=== PATIENT | male | born 1950 | race Two or more races ===

== ENCOUNTER 2019-01-30 15:07 | Inpatient (IN) | payer SELFPAY ==
--- NOTE | 2019-01-30 15:16 | PDOC ---
History of Present Illness - General Stated Complaint: ALTERED MENTAL STATUS Time Seen by Provider: 01/30/19 15:15
--- NOTE | 2019-01-30 15:45 | PDOC ---
History of Present Illness - General Chief Complaint: Altered Mental Status Stated Complaint: ALTERED MENTAL STATUS Time Seen by Provider: 01/30/19 15:15 - History of Present Illness Initial Comments: 01/30/19 15:44 Patient is a 68 yo male w/ unknown pmh who presents for evaluation after found walking along train tracks earlier today. Brought to ER by [facility]; patient has never been to this ER before. Patient reports his girlfriend kicked him out. Unable to provide other information. The patient denies chest pain, shortness of breath, headache and dizziness. Denies fever, chills, nausea, vomit, diarrhea and constipation. Denies dysuria, frequency, urgency and hematuria. Past History - Past Medical History Allergies/Adverse Reactions: Allergies Allergy/AdvReac Type Severity Reaction Status Date / Time No Known Allergies Allergy Verified 01/30/19 15:53 Review of Systems - Review of Systems Comments:: 01/30/19 15:45 Unable to obtain further. *Physical Exam - Physical Exam Comments: 01/30/19 15:45 GENERAL: +Oriented x1. Awake, alert, in no acute distress HEAD: No signs of trauma, normocephalic, atraumatic EYES: PERRLA, EOMI, sclera anicteric, conjunctiva clear ENT: Auricles normal inspection, hearing grossly normal, nares patent, oropharynx clear without exudates. Moist mucosa NECK: Normal ROM, supple, no lymphadenopathy, JVD, or masses LUNGS: No distress, speaks full sentences, clear to auscultation bilaterally HEART: Regular rate and rhythm, normal S1 and S2, no murmurs, rubs or gallops, peripheral pulses normal and equal bilaterally. ABDOMEN: Soft, nontender, normoactive bowel sounds. No guarding, no rebound. No masses EXTREMITIES: Normal inspection, Normal range of motion, no edema. No clubbing or cyanosis. NEUROLOGICAL: Cranial nerves II through XII grossly intact. Normal speech, normal gait, no focal sensorimotor deficits SKIN: Warm, Dry, normal turgor, no rashes or lesions noted. Heart Score/ECG Review - History History: Slightly suspicious - Electrocardiogram EKG: Non specific repolarization disturbance - Age Age: >/= 65 - Risk Factors Risk Factors Heart Score: Yes Hx Hypercholesterolemia, Yes Hx Hypertension, Yes Hx Diabetes Based on the list above the patient has:: >/=3 risk factors or Hx atherosclerotic disease - Troponin Troponin: >/=3x normal limit - Score Heart Score - Total: 7 ED Treatment Course - LABORATORY CBC & Chemistry Diagram: 01/30/19 16:09 01/30/19 16:09 Medical Decision Making - Medical Decision Making 01/30/19 15:54 Mr. Mcpherson is a 68 yo male w/ unknown pmh who presents for evaluation after picked up by [employer]. Patient unable to provide history; AOx1 only. Patient unaware of any medical problems or medicines proscribed. Called [employer] [facility] [employer] and no records found in either system nationally. 01/30/19 18:28 [employer] contacted who reported patient is a missing person. Family info received. contacted who is en route to hospital. Labs returned with elevated troponin as below to 0.54. EKG significant for ST elevation in V1. Cardiology paged. Patient continues to deny chest pain. 01/30/19 18:43 Discussed patient with neonatal intensive care nurse who recommended ASA, statin, beta-arnulfo. Given patient's BP at 125/80 beta-arnulfo held at this time. Attempted to call patient's - spoke to son and informed of arrival. [phone]. Son informed patient has HTN, HLD, DM, and "device in heart." Confirmed patient is only oriented to self at baseline. Head CT significant for possible small left chronic cerebellar infect. Negative for acute process. Patient admitted to hospitalist for further evaluation. Laboratory Results - last 24 hr 01/30/19 01/30/19 01/30/19 16:09 16:09 16:09 WBC 10.9 H RBC 4.21 Hgb 13.3 Hct 38.4 MCV 91.0 MCH 31.5 MCHC 34.6 RDW 13.6 Plt Count 220 MPV 9.3 Absolute Neuts (auto) 8.4 H Neutrophils % 77.6 Lymphocytes % 14.4 Monocytes % 7.0 Eosinophils % 0.4 Basophils % 0.6 Nucleated RBC % 0 Sodium 140 Potassium 4.2 Chloride 105 Carbon Dioxide 25 Anion Gap 10 BUN 15 Creatinine 1.4 H Creat Clearance w eGFR 50.25 Random Glucose 158 H Calcium 9.0 Total Bilirubin 1.0 AST 32 ALT 30 Alkaline Phosphatase 102 Ammonia Creatine Kinase 383 H Troponin I 0.54 H Total Protein 7.5 Albumin 3.6 Urine Color Yellow Urine Appearance Clear Urine pH 6.0 Ur Specific [place] 1.014 Urine Protein Negative Urine Glucose (UA) Negative Urine Ketones 1+ H Urine Blood Negative Urine Nitrite Negative Urine Bilirubin Negative Urine Urobilinogen 1.0 Ur Leukocyte Esterase Negative 01/30/19 16:09 WBC RBC Hgb Hct MCV MCH MCHC RDW Plt Count MPV Absolute Neuts (auto) Neutrophils % Lymphocytes % Monocytes % Eosinophils % Basophils % Nucleated RBC % Sodium Potassium Chloride Carbon Dioxide Anion Gap BUN Creatinine Creat Clearance w eGFR Random Glucose Calcium Total Bilirubin AST ALT Alkaline Phosphatase Ammonia 23.40 Creatine Kinase Troponin I Total Protein Albumin Urine Color Urine Appearance Urine pH Ur Specific [place] Urine Protein Urine Glucose (UA) Urine Ketones Urine Blood Urine Nitrite Urine Bilirubin Urine Urobilinogen Ur Leukocyte Esterase *DC/Admit/Observation/Transfer Diagnosis at time of Disposition: Elevated troponin, ST segment changes on electrocardiogram - Discharge Dispostion Decision to Admit order: Yes - Referrals - Patient Instructions - Post Discharge Activity
--- NOTE | 2019-01-30 16:09 | PDOC ---
Documentation entered by Kelley Little SCRIBE, acting as scribe for Kayley Cuevas MD. Attending Attestation - Resident Resident Name: Clark Borden - ED Attending Attestation I have performed the following: I have examined & evaluated the patient, The case was reviewed & discussed with the resident, I agree w/resident's findings & plan - HPI HPI: 01/30/19 16:20 The patient is a 68 year old male with no known PMH who was brought into the ED by [facility] after being found near the train tracks. He has no complaints at this time. Patient is unable to provide any further history. The patient denies chest pain, shortness of breath, headache and dizziness. Denies fever, chills, nausea, vomit, diarrhea and constipation. Denies dysuria, frequency, urgency and hematuria. Allergies: NKA Past surgical history: None reported. - Physicial Exam PE: GENERAL: Awake, alert, oriented to person, in no acute distress. Confused HEAD: No signs of trauma EYES: PERRLA, EOMI, sclera anicteric, conjunctiva clear ENT: Auricles normal inspection, hearing grossly normal, nares patent, oropharynx clear without exudates. Dry mucosa NECK: Normal ROM, supple, no lymphadenopathy, JVD, or masses LUNGS: Breath sounds equal, clear to auscultation bilaterally. No wheezes, and no crackles HEART: Regular rate and rhythm, normal S1 and S2, no murmurs, rubs or gallops ABDOMEN: Soft, nontender, normoactive bowel sounds. No guarding, no rebound. No masses EXTREMITIES: Normal range of motion, no edema. No clubbing or cyanosis. No cords, erythema, or tenderness NEUROLOGICAL: Cranial nerves II through XII grossly intact. Normal speech. Motor and sensation intact. Answers questions inappropriately SKIN: Warm, Dry, normal turgor, no rashes or lesions noted. - Medical Decision Making Pt with AMS, unclear past medical history. Will obtain AMS workup including labs (will do ammonia level), CTH, CXR, EKG. Kayley Cuevas MD: This documentation has been prepared by the Sidney davidson Daisy, SCRIBE, under my direction and personally reviewed by me in its entirety. I confirm that the documentation accurately reflects all work, treatment, procedures, and medical decision making performed by me.
[2019-01-30 17:46] LABS: BASO % 0.6 % (0-2.0); EOS % 0.4 % (0-4.5); HEMATOCRIT 38.4 % (35.4-49); HEMOGLOBIN 13.3 GM/dL (11.7-16.9); LYMPH % 14.4 % (8-40); MCH 31.5 pg (25.7-33.7); MCHC 34.6 g/dl (32.0-35.9); MEAN PLT VOLUME 9.3 fl (7.5-11.1); NEUT % 77.6 % (42.8-82.8); PLATELET COUNT 220 K/MM3 (134-434); RBC 4.21 M/mm3 (4.00-5.60); RDW 13.6 % (11.9-15.9); WHITE BLOOD COUNT 10.9 K/mm3 (4.0-10.0)
[2019-01-30 17:52] LABS: URINE APPEARANCE CLEAR; URINE BILIRUBIN NEGATIVE (NEGATIVE); URINE COLOR YELLOW; URINE GLUCOSE (UA) NEGATIVE (NEGATIVE); URINE KETONE 1+ (NEGATIVE); URINE LEUK ESTERASE NEGATIVE (NEGATIVE); URINE NITRITE NEGATIVE (NEGATIVE); URINE PROTEIN NEGATIVE (NEGATIVE)
[2019-01-30 18:20] LABS: ALBUMIN 3.6 g/dl (3.4-5.0); ALK PHOS 102 U/L (45-117); ANION GAP 10 MMOL/L (8-16); BLOOD UREA NITROGEN 15 mg/dL (7-18); CHLORIDE 105 mmol/L (98-107); CO2 25 mmol/L (21-32); CREATININE 1.4 mg/dL (0.55-1.3); GLUCOSE,RANDOM 158 mg/dL (74-106); POTASSIUM 4.2 mmol/L (3.5-5.1); SGOT/AST 32 U/L (15-37); SGPT/ALT 30 U/L (13-61); SODIUM 140 mmol/L (136-145); TOT PROT 7.5 g/dl (6.4-8.2)
[2019-01-30] MEDS ORDERED: ASPIRIN 81 MG CHEWABLE TABLETS PO ONE (18:30)
[2019-01-30] MEDS ORDERED: ASPIRIN 81 MG CHEWABLE TABLETS ONE (18:34)
[2019-01-30] MEDS ORDERED: IBUPROFEN 100 MG/5 ML UNIT DOSE CUPS ONE (19:48)
[2019-01-30] MEDS ORDERED: ATORVASTATIN CA 40 MG TABLET (FP) PO ONE (19:54)
[2019-01-30] MEDS ORDERED: ATORVASTATIN CA 10 MG TABLET (FP) ONE (20:24)
[2019-01-30] MEDS ORDERED: METOPROLOL TARTRATE 25 MG TABLET (FP) PO ONE ×2 (20:30)
--- NOTE | 2019-01-30 20:50 | HP ---
CHIEF COMPLAINT: found wandering CANOE BUILDER: Abdirashid Shelton MD [phone] HISTORY OF PRESENT ILLNESS: Patient is a 68 y/o M w/ PMHx dementia, [place] in 2006 s/p PPM and possible stenting , DM, HTN, HLD, wandered from home to attend a medical appointment at [facility] that did not exist, missing persons complaint was filed and Pt was found wandering along train tracks by [facility] and brought to [facility] ED. Was oriented only to name on presentation and had no complaints. All history was eventually provided by sons at bedside. ED ordered AMS w/u, HCT was negative, CXR noted cardiac hardware, labs were significant for elevated cardiac enzymes including troponin 0.54 and Cr 1.4 with unknown baseline, EKG showed possible isolated ST abnormality at V1 and failed to show a paced rhythm. Cardiology was consulted by ED and Dr. Kaur recommended loading ASA, statin, and b-blockade. Pt denies any CP, SOB, diaphoresis, n/v. ROS comprehensively negative on repeated questioning. Per sons, mental status is baseline, wandering episodes are typical over past 2-3 years. Pt ambulates without assistance at home, can walk 2 blocks without dyspnea, and can perform ADLs although family monitors him for safety. Sons further report recent bout of flu treated with medication ~2 weeks ago. ER course was notable for: (1) HCT negative (2) trop 0.54, abnormal EKG as per above (3) Cr 1.4 Recent Travel: none PAST MEDICAL HISTORY: As per [facility] PAST SURGICAL HISTORY: None but PPM placement Social History: Smoking: no Alcohol: no Drugs: no Family History: Allergies No Known Allergies Allergy (Verified 01/30/19 15:53) HOME MEDICATIONS: REVIEW OF SYSTEMS As per [facility] PHYSICAL EXAMINATION Vital Signs - 24 hr 01/30/19 15:39 Temperature 97.8 F Pulse Rate 89 Respiratory 17 Rate Blood Pressure 125/80 O2 Sat by Pulse 98 Oximetry (%) GENERAL: A&Ox1 (self only), NAD HEENT: NC/AT, PERRLA, EOMI, MMM, anicteric NECK: Normal range of motion, supple without lymphadenopathy, JVD, or masses. LUNGS: CTA b/l HEART: RRR no m/r/g, no pacing appreciated ABDOMEN: +bs, soft, NT, ND EXTREMITIES: 2+ pulses, warm, well-perfused. No calf tenderness. No peripheral edema. NEUROLOGICAL: limited exam, no focal abnormalities appreciated PSYCHIATRIC: pleasantly demented SKIN: Warm, dry, normal turgor, no rashes or lesions noted, normal capillary refill. Laboratory Results - last 24 hr 01/30/19 01/30/19 01/30/19 16:09 16:09 16:09 WBC 10.9 H RBC 4.21 Hgb 13.3 Hct 38.4 MCV 91.0 MCH 31.5 MCHC 34.6 RDW 13.6 Plt Count 220 MPV 9.3 Absolute Neuts (auto) 8.4 H Neutrophils % 77.6 Lymphocytes % 14.4 Monocytes % 7.0 Eosinophils % 0.4 Basophils % 0.6 Nucleated RBC % 0 Sodium 140 Potassium 4.2 Chloride 105 Carbon Dioxide 25 Anion Gap 10 BUN 15 Creatinine 1.4 H Creat Clearance w eGFR 50.25 Random Glucose 158 H Calcium 9.0 Total Bilirubin 1.0 AST 32 ALT 30 Alkaline Phosphatase 102 Ammonia Creatine Kinase 383 H Creatine Kinase Index 1.5 CK-MB (CK-2) 5.8 H Troponin I 0.54 H Total Protein 7.5 Albumin 3.6 Urine Color Yellow Urine Appearance Clear Urine pH 6.0 Ur Specific [place] 1.014 Urine Protein Negative Urine Glucose (UA) Negative Urine Ketones 1+ H Urine Blood Negative Urine Nitrite Negative Urine Bilirubin Negative Urine Urobilinogen 1.0 Ur Leukocyte Esterase Negative 01/30/19 16:09 WBC RBC Hgb Hct MCV MCH MCHC RDW Plt Count MPV Absolute Neuts (auto) Neutrophils % Lymphocytes % Monocytes % Eosinophils % Basophils % Nucleated RBC % Sodium Potassium Chloride Carbon Dioxide Anion Gap BUN Creatinine Creat Clearance w eGFR Random Glucose Calcium Total Bilirubin AST ALT Alkaline Phosphatase Ammonia 23.40 Creatine Kinase Creatine Kinase Index CK-MB (CK-2) Troponin I Total Protein Albumin Urine Color Urine Appearance Urine pH Ur Specific [place] Urine Protein Urine Glucose (UA) Urine Ketones Urine Blood Urine Nitrite Urine Bilirubin Urine Urobilinogen Ur Leukocyte Esterase ASSESSMENT/PLAN: 68 y/o M w/ PMHx dementia, [place] in 2006 s/p PPM and unknown stenting status, DM, HTN, HLD, BIBEMS after being found wandering by [employer], found to have abnormal EKG and troponemia, denies CP or any other complaints #A: -troponemia -EKG abnormality -baseline dementia -DM -HTN -HLD #P: -trend troponins, EKG -cardiology consulted -loading ASA, statin, Lopressor given -requires medication reconciliation -medical information release form signed by family; outpt freight conductor is Abdirashid Cat [phone] -obtain A1c -obtain lipid profile -follow BMP, Mg, Phos -BGM, SSI -heparin subq for DVT PPx -no IVF -diabetic diet -full code -admit to telemetry Visit type - Emergency Visit Emergency Visit: Yes ED Registration Date: 01/30/19 Care time: The patient presented to the Emergency Department on the above date and was hospitalized for further evaluation of their emergent condition. - New Patient This patient is new to me today: Yes Date on this admission: 01/30/19 - Critical Care Critical Care patient: No
--- NOTE | 2019-01-30 20:53 | HP ---
CHIEF COMPLAINT:found in the street by the police PCP: HISTORY OF PRESENT ILLNESS: He is a 68 Y/O M W HTN, DM, HLD, dementia( for past 3-4 years) , PPM, PCI with 2 stents. He had left the house in the morning and was found by the police wandering. Per son he can not remember the events in the past couple of hours but can inform other about pain at that time. in the ED patient was found to be confused but in no distress and no complaints. patient is being admitted to medicine for further evaluation of the abnormal cardiac enzymes. At this time he has no complaints Per his son he usually can walk about to 2 blocks with no complaints, and last time he walked couple of blocks was yesterday and he has no CP, SOB or any other cardiopulmonary complaints at that time. Per his son he was evaluated by his physician compensation analyst about 4 days ago and no further intervention recommended. Per notes from [facility]: last Cath in 2010: RCA and LAD has stentes that were patent at that time. ER course was notable for: (1)abnormal Troponin and CPK (2) (3) Recent Travel: NONE PAST MEDICAL HISTORY: PPM PAST SURGICAL HISTORY: Social History: Smoking:NO Alcohol:NO Drugs: NO Family History: n/a Allergies No Known Allergies Allergy (Verified 01/30/19 15:53) HOME MEDICATIONS: REVIEW OF SYSTEMS No complaints at this time PHYSICAL EXAMINATION Vital Signs - 24 hr 01/30/19 15:39 Temperature 97.8 F Pulse Rate 89 Respiratory 17 Rate Blood Pressure 125/80 O2 Sat by Pulse 98 Oximetry (%) Pleasant elderly M in no distress CVS:S1S2 CTAB Abd:BS+, nt.nd EXT: no edema 2+ DP pulses B/L A&oX1 self and his family member, per family members at baseline at this time has PPM placed Laboratory Results - last 24 hr 01/30/19 01/30/19 01/30/19 16:09 16:09 16:09 WBC 10.9 H RBC 4.21 Hgb 13.3 Hct 38.4 MCV 91.0 MCH 31.5 MCHC 34.6 RDW 13.6 Plt Count 220 MPV 9.3 Absolute Neuts (auto) 8.4 H Neutrophils % 77.6 Lymphocytes % 14.4 Monocytes % 7.0 Eosinophils % 0.4 Basophils % 0.6 Nucleated RBC % 0 Sodium 140 Potassium 4.2 Chloride 105 Carbon Dioxide 25 Anion Gap 10 BUN 15 Creatinine 1.4 H Creat Clearance w eGFR 50.25 Random Glucose 158 H Calcium 9.0 Total Bilirubin 1.0 AST 32 ALT 30 Alkaline Phosphatase 102 Ammonia Creatine Kinase 383 H Creatine Kinase Index 1.5 CK-MB (CK-2) 5.8 H Troponin I 0.54 H Total Protein 7.5 Albumin 3.6 Urine Color Yellow Urine Appearance Clear Urine pH 6.0 Ur Specific [place] 1.014 Urine Protein Negative Urine Glucose (UA) Negative Urine Ketones 1+ H Urine Blood Negative Urine Nitrite Negative Urine Bilirubin Negative Urine Urobilinogen 1.0 Ur Leukocyte Esterase Negative 01/30/19 16:09 WBC RBC Hgb Hct MCV MCH MCHC RDW Plt Count MPV Absolute Neuts (auto) Neutrophils % Lymphocytes % Monocytes % Eosinophils % Basophils % Nucleated RBC % Sodium Potassium Chloride Carbon Dioxide Anion Gap BUN Creatinine Creat Clearance w eGFR Random Glucose Calcium Total Bilirubin AST ALT Alkaline Phosphatase Ammonia 23.40 Creatine Kinase Creatine Kinase Index CK-MB (CK-2) Troponin I Total Protein Albumin Urine Color Urine Appearance Urine pH Ur Specific [place] Urine Protein Urine Glucose (UA) Urine Ketones Urine Blood Urine Nitrite Urine Bilirubin Urine Urobilinogen Ur Leukocyte Esterase EKG reviewed, has J point elevation in the V1, no other abnormal ST-T changes at this time. no EKG to compare with at this time ASSESSMENT/PLAN: He is a 68 Y/O M W known CAD S/P PCI in the past, HTN. HLP. DM. Dementia. initially was BIB [employer] for wandering which per family is his baseline. was found to have abnormal cardiac markers. Abnormal cardiac markers in patient with known CAD: no cardiopulmonary complaints at this time. but as he has dementia will admit and monitor cardiac markers and F/u EKG and any tele events, please sent A1C, lipid panel Was loaded with aspirin in the ED. cardiology was called and plan for monitoring and no need for ACS treatment at this time. Will confirm the medication at this time. mean while will load with plavix 300 but hold AC as he giles no complaints If develops CP, SOB will start AC. TTE tomorrow Keep K>4, Mg>2 he has to be on aspirin, statin and B blockers. No need for O2 as he is not hypoxic DM: C/W FS check and restart is home regimen Dementia: C/W home medication will have him on close observation as he is risk of ELOPEMENT fc Rest of the management per HS Visit type - Emergency Visit Emergency Visit: Yes ED Registration Date: 01/30/19 Care time: The patient presented to the Emergency Department on the above date and was hospitalized for further evaluation of their emergent condition. - New Patient This patient is new to me today: Yes Date on this admission: 01/30/19 - Critical Care Critical Care patient: No
[2019-01-30] MEDS ORDERED: METOPROLOL TARTRATE 25 MG TABLET (FP) ONE (21:13)
[2019-01-30] MEDS: INSULIN SLIDING SCALE (NOVOLOG) 1 VIAL SQ SCH (22:59)
[2019-01-31] MEDS ORDERED: CLOPIDOGREL BISULFATE 300 MG TABLET PO ONE (00:39)
[2019-01-31] MEDS ORDERED: ENOXAPARIN NA (PORCINE) 80 MG/0.8 ML DISP.SYRIN SQ ONE ×2 (00:43→01:50)
[2019-01-31] MEDS ORDERED: CLOPIDOGREL BISULFATE 300 MG TABLET ONE (01:49)
[2019-01-31] MEDS ORDERED: HEPARIN NA (PORCINE) 5,000 UNITS/ML 1ML VIAL SQ SCH (06:00)
[2019-01-31 06:25] LABS: BASO % 0.1 % (0-2.0); EOS % 0.7 % (0-4.5); HEMATOCRIT 38.4 % (35.4-49); HEMOGLOBIN 13.8 GM/dL (11.7-16.9); LYMPH % 17.9 % (8-40); MCH 32.2 pg (25.7-33.7); MCHC 35.9 g/dl (32.0-35.9); MEAN CELL VOLUME 89.5 fl (80-96); MEAN PLT VOLUME 9.3 fl (7.5-11.1); MONO % 6.7 % (3.8-10.2); NEUT % 74.6 % (42.8-82.8); PLATELET COUNT 215 K/MM3 (134-434); RBC 4.29 M/mm3 (4.00-5.60); RDW 13.3 % (11.9-15.9)
[2019-01-31] MEDS ORDERED: INSULIN (NOVOLOG) ASPART 100 UNITS/ML 10ML VIAL ONE (06:43)
[2019-01-31] MEDS: INSULIN SLIDING SCALE (NOVOLOG) 1 VIAL SQ SCH (06:46)
[2019-01-31 06:56] LABS: ANION GAP 10 MMOL/L (8-16); BLOOD UREA NITROGEN 18 mg/dL (7-18); CALCIUM 9.4 mg/dL (8.5-10.1); CHLORIDE 101 mmol/L (98-107); CHOLESTEROL 82 mg/dL (50-200); CO2 25 mmol/L (21-32); CREATININE 1.4 mg/dL (0.55-1.3); GLUCOSE,RANDOM 264 mg/dL (74-106); HDL CHOLESTEROL 37 mg/dL (40-60); MAGNESIUM 1.8 mg/dL (1.8-2.4); POTASSIUM 4.3 mmol/L (3.5-5.1); SODIUM 136 mmol/L (136-145); TRIGLYCERIDES 50 mg/dL (0-150)
--- NOTE | 2019-01-31 09:02 | CON.CARD ---
Consult Consult Specialty:: Cardiology Referred by:: Hospitalist Reason for Consultation:: Cardiac evaluation - History of Present Illness History of Present Illness: Patient is a 68 year old male with underlying history of organic brain syndrome/ dementia, sick sinus syndrome s/p PPM, CAD, DM, HTN and hypercholesterolemia who was found wandering and was picked up by police to be admitted to the hospital. He appears to be slow to response. He denies chest pain, SOB or palpitations. He denies paroxysmal nocturnal dyspnea or orthopnea. He denies fever or chills. He denies nausea, vomiting, diarrhea or abdominal pain. He denies headache or lightheadedness. Troponin was elevated to 0.54. Prior cardiac evaluation by his tobacco packing machine operator noted continued medical therapy. Beverage Sales Consultant: Abdirashid Shelton MD ([phone]) - Alcohol/Substance Use Hx Alcohol Use: No - Smoking History Smoking history: Never smoked Home Medications - Allergies Allergies/Adverse Reactions: Allergies Allergy/AdvReac Type Severity Reaction Status Date / Time No Known Allergies Allergy Verified 01/30/19 15:53 Vital Signs: Vital Signs Temperature 97.8 F 01/31/19 04:00 Pulse Rate 78 01/31/19 04:00 Respiratory Rate 18 01/31/19 04:00 Blood Pressure 104/53 L 01/31/19 04:00 O2 Sat by Pulse Oximetry (%) 98 01/31/19 04:00 - Other Data Labs, Other Data: CBC, BMP 01/31/19 05:30 01/31/19 05:30 Troponin, BNP 01/30/19 01/31/19 01/31/19 16:09 00:00 05:30 Troponin I 0.54 H 0.53 H 0.42 H Troponin, BNP 01/30/19 01/31/19 01/31/19 16:09 00:00 05:30 Troponin I 0.54 H 0.53 H 0.42 H
[2019-01-31] MEDS ORDERED: DEXTROSE 50%-WATER - 25 GM/50 ML VIAL ONE (09:58)
[2019-01-31] MEDS ORDERED: ASPIRIN COATED 81 MG TABLET.EC PO SCH (10:00)
[2019-01-31 10:13] VITALS: BP 109/48; PULSE 42; TEMP 97.7
[2019-01-31] MEDS ORDERED: DEXTROSE 50%-WATER - 25 GM/50 ML VIAL IVPUSH ONE (10:44)
[2019-01-31 10:57] VITALS: BMI 21.9
--- NOTE | 2019-01-31 11:03 | EKG ---
Test Reason : Blood Pressure : / mmHG Vent. Rate : 089 BPM Atrial Rate : 089 BPM P-R Int : 128 ms QRS Dur : 098 ms QT Int : 382 ms P-R-T Axes : 027 -12 029 degrees QTc Int : 464 ms SINUS RHYTHM WITH OCCASIONAL PREMATURE VENTRICULAR COMPLEXES VOLTAGE CRITERIA FOR LEFT VENTRICULAR HYPERTROPHY NONSPECIFIC ST ABNORMALITY ABNORMAL ECG NO PREVIOUS ECGS AVAILABLE Confirmed by MD Eli, Evans ([id number]) on 01/31/2019 11:03:01 AM Referred By: Confirmed By:Evans Benitez MD
--- NOTE | 2019-01-31 11:06 | EKG ---
Test Reason : Blood Pressure : / mmHG Vent. Rate : 079 BPM Atrial Rate : 079 BPM P-R Int : 130 ms QRS Dur : 096 ms QT Int : 422 ms P-R-T Axes : 036 -03 -17 degrees QTc Int : 483 ms NORMAL SINUS RHYTHM MODERATE VOLTAGE CRITERIA FOR LVH, MAY BE NORMAL VARIANT NONSPECIFIC ST AND T WAVE ABNORMALITY PROLONGED QT ABNORMAL ECG WHEN COMPARED WITH ECG OF 30-JAN-2019 15:17, PREMATURE VENTRICULAR COMPLEXES ARE NO LONGER PRESENT NONSPECIFIC T WAVE ABNORMALITY, WORSE IN INFERIOR LEADS Confirmed by MD Eli, Evans ([id number]) on 01/31/2019 11:05:59 AM Referred By: Confirmed By:Evans Benitez MD
--- NOTE | 2019-01-31 11:11 | ECHO ---
Name: TINO POOLE Exam:Adult Echocardiogram Study Date: 01/31/2019 08:14 AM Age: 68 yrs Height: 69 in Weight: 160 lb BSA: 1.9 m2 MMode/2D Measurements & Calculations IVSd: 1.1 cm ACS: 1.9 cm LVIDd: 3.5 cm LVIDs: 2.6 cm LVPWd: 1.2 cm EDV(Teich): 50.6 ml LVOT diam: 2.0 cm ESV(Teich): 24.5 ml RV S Kang: 19.0 cm/sec Doppler Measurements & Calculations MV E max kang: 53.5 cm/sec AI P1/2t: 498.3 msec MV A max kang: 64.4 cm/sec MV E/A: 0.83 AI max kang: 445.8 cm/sec MR max kang: 208.5 cm/sec AI max P.5 mmHg MR max P.2 mmHg AI dec slope: 262.0 cm/sec2 TR max kang: 238.3 cm/sec Med Peak E' Kang: 4.9 cm/sec TR max P.7 mmHg Med E/e': 11.0 Lat Peak E' Kang: 10.0 cm/sec Lat E/e': 5.3 Procedure The study was technically limited with all images being suboptimal in quality. Left Ventricle The left ventricle is normal in size. Large region of apical, septal and inferior wall akinesis. Kristen rely reduced LV systolic function. Ejection Fraction = 25%. Right Ventricle There is a pacemaker lead in the right ventricle. The right ventricle is normal in size and function. Atria Normal left and right atrial size and function. Mitral Valve The mitral valve is normal in structure and function. Tricuspid Valve The tricuspid valve is normal in structure and function. Aortic Valve There is mild aortic sclerosis.;. The aortic valve is trileaflet. Moderate aortic regurgitation. Pulmonic Valve The pulmonic valve is not well visualized. Great Vessels The aortic root is normal size. Pericardium/Pleura There is no pericardial effusion. Interpretation Summary Large region of apical, septal and inferior wall akinesis. Severely reduced LV systolic function. Eje ction Fraction = 25%. There is a pacemaker lead in the right ventricle. Moderate aortic regurgitation. Freeman Vargas 01/31/2019 11:10 AM
--- NOTE | 2019-01-31 12:34 | DS ---
Physical Exam: SUBJECTIVE: Patient seen and examined at bedside this morning. He is alert only to self. Patient does not endorse acute complaints. OBJECTIVE: Vital Signs Period Temp Pulse Resp BP Sys/Bell Pulse Ox Last 24 Hr 97.7 F-97.8 F 42-89 17-20 102-125/48-80 98-100 PHYSICAL EXAM GENERAL: The patient is awake, alert, oriented only to self, in no acute distress. HEAD: Normocephalic, atraumatic. EYES: PERRL, extraocular movements intact, conjunctiva clear. ENT: Oropharynx clear without exudates, moist mucous membranes. NECK: Supple without lymphadenopathy LUNGS: Breath sounds equal, clear to auscultation bilaterally, no wheezes, no crackles, no accessory muscle use. HEART: Regular rate and rhythm, S1, S2 without murmur, rub or gallop. ABDOMEN: Soft, nontender, nondistended, normoactive bowel sounds, no guarding, no rebound, no hepatosplenomegaly, no masses. EXTREMITIES: 2+ pulses, warm, well-perfused, no edema. NEUROLOGICAL: Cranial nerves II through XII grossly intact. Normal speech. No gross focal deficits. SKIN: Warm, dry. LABS Laboratory Results - last 24 hr 01/30/19 01/30/19 01/30/19 16:09 16:09 16:09 WBC 10.9 H RBC 4.21 Hgb 13.3 Hct 38.4 MCV 91.0 MCH 31.5 MCHC 34.6 RDW 13.6 Plt Count 220 MPV 9.3 Absolute Neuts (auto) 8.4 H Neutrophils % 77.6 Lymphocytes % 14.4 Monocytes % 7.0 Eosinophils % 0.4 Basophils % 0.6 Nucleated RBC % 0 Sodium 140 Potassium 4.2 Chloride 105 Carbon Dioxide 25 Anion Gap 10 BUN 15 Creatinine 1.4 H Creat Clearance w eGFR 50.25 POC Glucometer Random Glucose 158 H Hemoglobin A1c % Calcium 9.0 Phosphorus Magnesium Total Bilirubin 1.0 AST 32 ALT 30 Alkaline Phosphatase 102 Ammonia Creatine Kinase 383 H Creatine Kinase Index 1.5 CK-MB (CK-2) 5.8 H Troponin I 0.54 H Total Protein 7.5 Albumin 3.6 Triglycerides Cholesterol Total LDL Cholesterol HDL Cholesterol Urine Color Yellow Urine Appearance Clear Urine pH 6.0 Ur Specific Max 1.014 Urine Protein Negative Urine Glucose (UA) Negative Urine Ketones 1+ H Urine Blood Negative Urine Nitrite Negative Urine Bilirubin Negative Urine Urobilinogen 1.0 Ur Leukocyte Esterase Negative 01/30/19 01/31/19 01/31/19 16:09 00:00 05:30 WBC 7.0 RBC 4.29 Hgb 13.8 Hct 38.4 MCV 89.5 MCH 32.2 MCHC 35.9 RDW 13.3 Plt Count 215 MPV 9.3 Absolute Neuts (auto) 5.2 Neutrophils % 74.6 Lymphocytes % 17.9 D Monocytes % 6.7 Eosinophils % 0.7 Basophils % 0.1 Nucleated RBC % 0 Sodium Potassium Chloride Carbon Dioxide Anion Gap BUN Creatinine Creat Clearance w eGFR POC Glucometer Random Glucose Hemoglobin A1c % Calcium Phosphorus Magnesium Total Bilirubin AST ALT Alkaline Phosphatase Ammonia 23.40 Creatine Kinase Creatine Kinase Index CK-MB (CK-2) Troponin I 0.53 H Total Protein Albumin Triglycerides Cholesterol Total LDL Cholesterol HDL Cholesterol Urine Color Urine Appearance Urine pH Ur Specific Max Urine Protein Urine Glucose (UA) Urine Ketones Urine Blood Urine Nitrite Urine Bilirubin Urine Urobilinogen Ur Leukocyte Esterase 01/31/19 01/31/19 01/31/19 05:30 05:30 05:30 WBC RBC Hgb Hct MCV MCH MCHC RDW Plt Count MPV Absolute Neuts (auto) Neutrophils % Lymphocytes % Monocytes % Eosinophils % Basophils % Nucleated RBC % Sodium 136 Potassium 4.3 Chloride 101 Carbon Dioxide 25 Anion Gap 10 BUN 18 Creatinine 1.4 H Creat Clearance w eGFR 50.25 POC Glucometer Random Glucose 264 H Hemoglobin A1c % 11.0 H Calcium 9.4 Phosphorus 4.0 Magnesium 1.8 Total Bilirubin AST ALT Alkaline Phosphatase Ammonia Creatine Kinase Creatine Kinase Index CK-MB (CK-2) Troponin I 0.42 H Total Protein Albumin Triglycerides 50 Cholesterol 82 Total LDL Cholesterol 35 HDL Cholesterol 37 L Urine Color Urine Appearance Urine pH Ur Specific Max Urine Protein Urine Glucose (UA) Urine Ketones Urine Blood Urine Nitrite Urine Bilirubin Urine Urobilinogen Ur Leukocyte Esterase 01/31/19 01/31/19 01/31/19 06:33 09:56 10:20 WBC RBC Hgb Hct MCV MCH MCHC RDW Plt Count MPV Absolute Neuts (auto) Neutrophils % Lymphocytes % Monocytes % Eosinophils % Basophils % Nucleated RBC % Sodium Potassium Chloride Carbon Dioxide Anion Gap BUN Creatinine Creat Clearance w eGFR POC Glucometer 229 38 115 Random Glucose Hemoglobin A1c % Calcium Phosphorus Magnesium Total Bilirubin AST ALT Alkaline Phosphatase Ammonia Creatine Kinase Creatine Kinase Index CK-MB (CK-2) Troponin I Total Protein Albumin Triglycerides Cholesterol Total LDL Cholesterol HDL Cholesterol Urine Color Urine Appearance Urine pH Ur Specific Max Urine Protein Urine Glucose (UA) Urine Ketones Urine Blood Urine Nitrite Urine Bilirubin Urine Urobilinogen Ur Leukocyte Esterase HOSPITAL COURSE: Date of Admission:01/30/19 Date of Discharge: 01/31/19 Patient is a 68 year old male with history of dementia, myocardial infarction ( uncertain if stents) diabetes mellitus, hypertension, hyperlipidemia, was found wandering by [employer]. Head CT was negative for acute pathology. Patient had Troponin of 0.54 that decreased to 0.53 upon repeat. Cr 1.4 upon presentation, and upon repeat labs. EKG showed sinus rhythm with PVCs, and LVH. Nonspecific ST-T abnormalities noted. Cardiology consult recommended aspirin, stain, beta arnulfo. Cardiac ECHO showed large region of apical, septal , and inferior wall akinesis with severely reduced ejection fraction (25%). Patient's family requested that he leave the hospital to go to hospital closer to his home. Risks of leaving against medical advice were discussed at length with the patient and his family including worsening condition, cardiac arrest, fall, trauma to head or any other part of body, permanent disability, . Risks verbalized, and patient left against medical advice. Minutes to complete discharge: 35 Discharge Summary Reason For Visit: ELEVATED TROPININ LEVEL,ST SEGMENT CHANGES ON - Instructions Diet, Activity, Other Instructions: You were found wandering by [employer], and were brought to hospital for evaluation. You were evaluated by the [employer] quality control technician. Your bloodwork was concerning for heart damage (elevated Troponins), and your heart function was noted to be significantly reduced on your cardiac echocardiogram. Patient left the hospital against medical advice. Referrals: Sky Stephens MD [Staff Physician] - Disposition: AGAINST MEDICAL ADVICE - Home Medications Comprehensive Discharge Medication List: Ambulatory Orders Aspirin 81 mg PO DAILY 01/31/19 Carvedilol [Coreg] 6.25 mg PO BID 01/31/19 Lisinopril 5 mg PO DAILY 01/31/19 Quetiapine Fumarate [Seroquel] 100 mg PO DAILY 01/31/19 This patient is new to me today: Yes Date on this admission: 01/31/19 Emergency Visit: Yes ED Registration Date: 01/30/19 Care time: The patient presented to the Emergency Department on the above date and was hospitalized for further evaluation of their emergent condition. Critical Care patient: No - Discharge Referral Referred to [facility] No
--- NOTE | 2019-01-31 14:17 | PN ---
Teaching Attending Note Name of Resident: Duong Haynes ATTENDING PHYSICIAN STATEMENT I reviewed the resident's note and discussed the case with the resident. I agree with the resident's findings and plan as documented. SUBJECTIVE:pt was signed out AMA by family prior to my assessment
--- NOTE | 2019-01-31 19:56 | HOSP ---
Subjective - Review of Symptoms Events since last encounter: spoke with Dr. Espino from [facility] who states family brought patient to that facility after he signed out AMA from [facility] today. Case reviewed with Physician (discussed radiology findings, labs incl UA and initial reason for admission). [facility] physician states that patient has a positive mental health history and left home while his was sleeping. He was picked up by [employer] and brought to [facility]. Further evaluation to continue at [facility] hospital Physical Examination Vital Signs: Vital Signs Temperature 97.7 F 01/31/19 10:13 Pulse Rate 42 L 01/31/19 10:13 Respiratory Rate 20 01/31/19 10:13 Blood Pressure 109/48 L 01/31/19 10:13 O2 Sat by Pulse Oximetry (%) 100 01/31/19 10:46 Labs: CBC, BMP 01/31/19 05:30 01/31/19 05:30
== END 2019-01-31 11:34 | disposition left against medical advice (07) | DRG 207 ==
LOC: JER 15:07 → JERBED 18:51 → J4W 01-31 09:09
PROVIDERS: ADMIT Internal Medicine; ATTEND Internal Medicine
DX: R94.31 Abnormal electrocardiogram [ECG] [EKG] (principal); F03.90 Unspecified dementia, unspecified severity, without behavioral disturbance, psychotic disturbance, mood disturbance, and anxiety; Z98.61 Coronary angioplasty status; R41.82 Altered mental status, unspecified; I25.10 Atherosclerotic heart disease of native coronary artery without angina pectoris; E11.9 Type 2 diabetes mellitus without complications; I10 Essential (primary) hypertension; F09 Unspecified mental disorder due to known physiological condition; E78.5 Hyperlipidemia, unspecified
CPT/HCPCS: 36415; 70450-TC; 71045-TC-FY; 80048; 80053; 80061; 81003; 82140; 82550; 82553; 82962; 83036; 83721; 83735; 84100; 84484; 85025; 87086; 93005; 93010; 93306-TC; 99285-25